=== PATIENT | male | born 1940 | race Caucasian/White ===

== ENCOUNTER 2018-06-13 11:13 | Observation (INO) | payer MEDICARE, OTHER ==
[~2018-06-13] VITALS: Ht 175.3 cm; Wt 90.6 kg
--- NOTE | 2018-06-13 11:33 | NUR ---
REPORT RECEIVED FROM KATIE HENRY. PT BIB [facility] FOR LEFT SIDE CHEST PAIN RADIATING DOWN LEFT ARM INTERMITTENTLY SINCE WEDNESDAY. TODAY PT STATES LEFT ARM PAIN WAS WORSE CAUSING PT TO CONTACT EMS. 324 ASA AND NITRO X3 GIVEN TO PT BRING CP DOWN FROM 11/09- 0. PT CONNECTED TO ALL MONITORING, VSS. NO PAIN AT THIS TIME. AT BEDSIDE. CALL LIGHT WITHIN REACH. AWAITING MD ASSESSMENT AND ORDERS AT THIS TIME
--- NOTE | 2018-06-13 12:06 | NUR ---
STILL AWAITING MD ORDERS AT THIS TIME. PT RESTING IN ROOM WITHOUT COMPLAINTS AT THIS TIME
--- NOTE | 2018-06-13 12:27 | NUR ---
MD TO BEDSIDE
[2018-06-13] MEDS ORDERED: NITROGLYCERIN SINGLE TAB 0.4 MG SL PRN (12:30)
[2018-06-13] MEDS ORDERED: SODIUM CHLORIDE 0.9% 1,000ML IVBOLUS ONE (12:30)
--- NOTE | 2018-06-13 12:31 | NUR ---
RAD COMPLETED. LAB AT BEDSIDE
[2018-06-13 12:43] LABS: BASOPHILS # (AUTO) 0.04 x10^3/uL (0-0.1); BASOPHILS % (AUTO) 1 % (0-1); EOSINOPHILS # (AUTO) 0.11 x10^3/uL (0-0.4); EOSINOPHILS % (AUTO) 2 % (1-7); LYMPHOCYTES # (AUTO) 0.54 x10^3/uL (1-3.4); LYMPHOCYTES % (AUTO) 8 % (22-44); MD NO; MEAN CORPUSCULAR HEMOGLOBIN 29.7 pg (27.5-34.5); MEAN CORPUSCULAR HGB CONC 33.4 g/dL (33.2-36.2); MEAN PLATELET VOLUME 10.3 fL (7.4-10.4); MONOCYTES # (AUTO) 0.28 x10^3/uL (0.2-0.8); MONOCYTES % (AUTO) 4 % (2-9); NEUTROPHILS # (AUTO) 6.09 x10^3/uL (1.8-6.8); NEUTROPHILS % (AUTO) 86 % (42-75); PLATELET COUNT 169 x10^3/uL (130-400); RED BLOOD COUNT 3.55 x10^6/uL (4.38-5.82); RED CELL DISTRIBUTION WIDTH 15.7 % (9.4-14.8)
[2018-06-13 12:55] LABS: ALANINE AMINOTRANSFERASE 15 U/L (12-78); ALBUMIN 3.4 g/dL (3.4-5.0); ANION GAP 4 mmol/L (5-15); CALCIUM 8.8 mg/dL (8.5-10.1); CHLORIDE 111 mmol/L (98-107); CREATININE 1.31 mg/dL (0.7-1.3)
[2018-06-13 13:00] LABS: ALKALINE PHOSPHATASE 79 U/L (45-117); BILIRUBIN,TOTAL 0.4 mg/dL (0.2-1.0); TOTAL PROTEIN 6.5 g/dL (6.4-8.2); TROPONIN I < 0.015 ng/mL (0.000-0.045)
[2018-06-13] MEDS ORDERED: CYCL1DRO EACHEYE (13:08)
[2018-06-13] MEDS ORDERED: ATROVENT (13:08)
[2018-06-13] MEDS ORDERED: DEXL60CA2 PO (13:08)
[2018-06-13] MEDS ORDERED: THEO400T2 PO (13:08)
[2018-06-13] MEDS ORDERED: GABA300C10 PO (13:08)
[2018-06-13] MEDS ORDERED: ALEN70TA3 PO (13:08)
[2018-06-13] MEDS ORDERED: BENA20TA54 PO (13:08)
[2018-06-13] MEDS ORDERED: ATOR20TA PO (13:08)
[2018-06-13] MEDS ORDERED: SENN1TAB8 PO (13:08)
[2018-06-13] MEDS ORDERED: DILT-8 PO (13:08)
[2018-06-13] MEDS ORDERED: ASCO500T5 PO (13:08)
[2018-06-13] MEDS ORDERED: PRED5TAB PO (13:08)
[2018-06-13] MEDS ORDERED: BUDE0.5A INH (13:08)
[2018-06-13] MEDS ORDERED: MONT10TA6 PO (13:08)
[2018-06-13] MEDS ORDERED: TAMS0.4C2 PO (13:08)
[2018-06-13] MEDS ORDERED: ASPI-496 PO (13:08)
[2018-06-13] MEDS ORDERED: SERT50TA28 PO (13:08)
[2018-06-13] MEDS ORDERED: METF500T9 PO (13:08)
[2018-06-13] MEDS ORDERED: RANI150T4 PO (13:08)
--- NOTE | 2018-06-13 14:07 | NUR ---
PT UP TO RESTROOM WITH STEADY GAIT. REPORTING 6/10 LEFT ARM PAIN STARTING. MD TO BE UPDATED. VSS, ALL RESULTS BACK. AWAITING ROOM ASSIGNMENT ON FLOOR
[2018-06-13] MEDS ORDERED: ONDANSETRON 2MG/ML, 2ML ONE (14:15)
[2018-06-13] MEDS ORDERED: MORPHINE SULFATE 4 MG/ML, 1ML ONE (14:15)
--- NOTE | 2018-06-13 14:26 | NUR ---
PT MEDICATED FOR PAIN PER MAR. AWAITING ROOM ON FLOOR AT THIS TIME
[2018-06-13] MEDS ORDERED: ONDANSETRON ODT 4 MG PO PRN (14:30)
[2018-06-13] MEDS ORDERED: morphine SULFATE 10 MG/ML, 1ML IVPush PRN (14:30)
[2018-06-13] MEDS ORDERED: LABETALOL 5MG/ML, 20ML IVPush PRN (14:30)
[2018-06-13] MEDS ORDERED: ONDANSETRON 2MG/ML, 2ML IVPush PRN (14:30)
--- NOTE | 2018-06-13 14:32 | NUR ---
REPORT GIVEN TO OLKESH RN, PT READY FOR TRANSPORT
[2018-06-13 14:51] LABS: FREE T4 (FREE THYROXINE) 0.98 ng/dL (0.76-1.46)
[2018-06-13 15:03] VITALS: BP 146/57
[2018-06-13] MEDS ORDERED: ALBUTEROL/IPRATROPIUM 2.5MG/0.5MG, 3 ML ONE (16:34)
[2018-06-13] MEDS: GABAPENTIN 300 MG CAPSULE PO SCH ×2 (16:44→20:23)
[2018-06-13] MEDS: ENOXAPARIN 40 MG/0.4 ML SQ SCH (16:44)
[2018-06-13 16:55] LABS: TROPONIN I < 0.015 ng/mL (0.000-0.045)
[2018-06-13] MEDS ORDERED: CYANOCOBALAMIN 1,000 MCG/ML, 1ML IM ONE (18:30)
[2018-06-13] MEDS: OMEPRAZOLE 20 MG CAPSULE.DR PO SCH (19:37)
[2018-06-13] MEDS ORDERED: ALBUTEROL/IPRATROPIUM 2.5MG/0.5MG, 3 ML NPPB SCH (20:00)
[2018-06-13] MEDS: ALBUTEROL/IPRATROPIUM 2.5MG/0.5MG, 3 ML NPPB SCH (20:04)
[2018-06-13] MEDS: BUDESONIDE 0.5 MG/2 ML INHA INH SCH (20:04)
[2018-06-13 20:21] VITALS: BP 130/64
[2018-06-13 20:44] LABS: TROPONIN I < 0.015 ng/mL (0.000-0.045)
[2018-06-13] MEDS ORDERED: FAMOTIDINE 20 MG TABLET PO SCH (21:00)
[2018-06-13] MEDS ORDERED: MONTELUKAST 10 MG TABLET PO SCH (21:00)
[2018-06-13] MEDS ORDERED: ATORVASTATIN 20 MG TABLET PO SCH (21:00)
[2018-06-13] MEDS ORDERED: OMNIPAQUE 350 MG/ML, 100ML BOTTLE ONE (22:39)
[2018-06-14 03:23] VITALS: BP 95/59
[2018-06-14 05:44] LABS: BASOPHILS # (AUTO) 0.04 x10^3/uL (0-0.1); BASOPHILS % (AUTO) 1 % (0-1); EOSINOPHILS % (AUTO) 5 % (1-7); LYMPHOCYTES # (AUTO) 0.96 x10^3/uL (1-3.4); LYMPHOCYTES % (AUTO) 15 % (22-44); MD NO; MEAN CORPUSCULAR HEMOGLOBIN 29.9 pg (27.5-34.5); MEAN CORPUSCULAR HGB CONC 33.7 g/dL (33.2-36.2); MEAN CORPUSCULAR VOLUME 88.9 fL (81-97); MEAN PLATELET VOLUME 10.7 fL (7.4-10.4); MONOCYTES # (AUTO) 0.47 x10^3/uL (0.2-0.8); MONOCYTES % (AUTO) 7 % (2-9); NEUTROPHILS # (AUTO) 4.75 x10^3/uL (1.8-6.8); NEUTROPHILS % (AUTO) 73 % (42-75); PLATELET COUNT 154 x10^3/uL (130-400); RED BLOOD COUNT 3.31 x10^6/uL (4.38-5.82); RED CELL DISTRIBUTION WIDTH 15.8 % (9.4-14.8)
[2018-06-14 05:55] LABS: CHLORIDE 112 mmol/L (98-107)
[2018-06-14] MEDS ORDERED: PANTOPROZOLE 40MG TABLET PO SCH (06:00)
[2018-06-14 06:11] LABS: ALANINE AMINOTRANSFERASE 13 U/L (12-78); ALBUMIN 3.1 g/dL (3.4-5.0); ALKALINE PHOSPHATASE 83 U/L (45-117); ANION GAP 5 mmol/L (5-15); BILIRUBIN,TOTAL 0.5 mg/dL (0.2-1.0); CALCIUM 8.6 mg/dL (8.5-10.1); CREATININE 1.28 mg/dL (0.7-1.3); TOTAL PROTEIN 6.1 g/dL (6.4-8.2)
[2018-06-14] MEDS: OMEPRAZOLE 20 MG CAPSULE.DR PO SCH (06:17)
[2018-06-14] MEDS ORDERED: PANTOPRAZOLE 40 MG IV IVPush SCH (07:30)
[2018-06-14 07:53] VITALS: BP 130/63
[2018-06-14 07:55] VITALS: BP 116/66
[2018-06-14] MEDS: GABAPENTIN 300 MG CAPSULE PO SCH ×2 (07:55→16:00)
[2018-06-14] MEDS ORDERED: REGADENOSON 0.4 MG/5 ML SYRINGE ONE (08:45)
[2018-06-14] MEDS ORDERED: TAMSULOSIN 0.4 MG CAP.ER.24H PO SCH (09:00)
[2018-06-14] MEDS ORDERED: (Cyclosporine (Restasis) 1 DROP) EACHEYE SCH (09:00)
[2018-06-14] MEDS ORDERED: BENAZEPRIL 20 MG TABLET PO SCH (09:00)
[2018-06-14] MEDS ORDERED: DILTIAZEM 120 MG CAP.ER.24H PO SCH (09:00)
[2018-06-14] MEDS: ALBUTEROL/IPRATROPIUM 2.5MG/0.5MG, 3 ML NPPB SCH ×2 (09:00→12:37)
[2018-06-14] MEDS ORDERED: SERTRALINE 50MG TABLET PO SCH (09:00)
[2018-06-14] MEDS ORDERED: ASPIRIN 81 MG TABLET EC PO SCH (09:00)
[2018-06-14] MEDS ORDERED: IRON SUCROSE COMPLEX 100MG/5ML IV SCH (09:00)
[2018-06-14] MEDS ORDERED: ASCORBIC ACID 500 MG TABLET PO SCH (09:00)
[2018-06-14] MEDS: BUDESONIDE 0.5 MG/2 ML INHA INH SCH ×2 (09:00→12:37)
[2018-06-14 12:48] VITALS: BP 141/70
[2018-06-14] MEDS: ENOXAPARIN 40 MG/0.4 ML SQ SCH (16:24)
== END 2018-06-14 17:29 | disposition home or self-care (01) ==
LOC: ED 12:17 → EDIP 14:14 → 5SO 14:50
PROVIDERS: ADMIT Hospitalist; ATTEND Hospitalist
DX: R07.9 Chest pain, unspecified (principal); I10 Essential (primary) hypertension; E11.9 Type 2 diabetes mellitus without complications; D64.9 Anemia, unspecified; G25.0 Essential tremor; G47.33 Obstructive sleep apnea (adult) (pediatric); I25.10 Atherosclerotic heart disease of native coronary artery without angina pectoris; I25.2 Old myocardial infarction; J44.9 Chronic obstructive pulmonary disease, unspecified; Z83.3 Family history of diabetes mellitus; Z87.891 Personal history of nicotine dependence; Z96.659 Presence of unspecified artificial knee joint; Z98.1 Arthrodesis status
CPT/HCPCS: 36415; 71045; 71275; 78452; 80053; 82607; 82728; 83540; 83550; 83605; 83735; 84100; 84439; 84443; 84484; 85025; 85379; 93005; 93017; 93306; 93970; 94640; 96372; 96374; 96375; 99284; A9502; C9898; G0378; J1650; J1756; J2270; J2405; J2785; J3420; J7030; J7512; J7620; J7626; Q9967